=== PATIENT | male | born 1955 | race Caucasian/White ===

== ENCOUNTER 2018-01-08 06:07 | Day surgery (SDC) | payer BC ==
[2018-01-08] MEDS ORDERED: NITROGLYCERIN SL TABS 0.4 MG TAB SUBLINGUAL STA (06:18)
[2018-01-08] MEDS ORDERED: SODIUM CHLORIDE 0.9% 1,000 ML IV STA (06:18)
[2018-01-08] MEDS ORDERED: GLUCAGON 1 MG/ML VIAL IVP STA (06:19)
--- NOTE | 2018-01-08 06:19 | ED ---
General Adult HPI <Cheko Farah Georgina - Last Filed: 01/08/18 10:40> - General Source: patient Mode of arrival: ambulatory Limitations: no limitations <Michelle Michel - Last Filed: 01/12/18 20:51> - General Chief complaint: ENT Stated complaint: Cannot Swallow Time Seen by Provider: 01/08/18 06:17 - History of Present Illness Initial comments: [id number]old male presents to the ED with a sensation that the pork chop for dinner still stuck in his throat. Patient reports that he was in his usual state of health throughout the day yesterday, he reports he had a protein shake for lunch and around 9 PM was eating his dinner in bed. He reports he took a big bite of a pork chop and felt as though it got stuck in his lower throat. Patient reports that it has felt as though it is in his throat since that time. He does report that he was able to cough up some of it but continues to feel as though there is a large piece of meat stuck. He reports that he has been awake all night because he is unable to lay flat and unable to tolerate his oral secretions. He's states that he has been spitting is his saliva into a bucket because he feels as though it pools in his throat and he can swallow it. He has no history of any similar events like this. He has had a colonoscopy in the past for routine screening but never had an EGD. He does report the distant past he was diagnosed with acid reflux and was on Nexium for a period of time but is no longer on that. At times he does have a sensation of acid or taste of acid in his throat when he lays down. However he wasn't experiencing that today. (Michelle Michel) - Related Data Home Medications Medication Instructions Recorded Confirmed Atorvastatin [Lipitor] 40 mg PO HS 03/03/16 03/03/16 Cholecalciferol [Vitamin D3] 1,000 unit PO DAILY 03/03/16 03/03/16 Escitalopram [Lexapro] 10 mg PO HS 03/03/16 03/03/16 Glucosamine/Chondr Quigley A Sod [Osteo 1 each PO DAILY 03/03/16 03/03/16 Bi-Flex Caplet] Hydrochlorothiazide [Hydrodiuril] 12.5 mg PO DAILY 03/03/16 03/03/16 Ibuprofen [Motrin] 800 mg PO DAILY 03/03/16 03/03/16 Losartan Potassium 100 mg PO DAILY 03/03/16 03/03/16 amLODIPine [Norvasc] 10 mg PO DAILY 03/03/16 03/03/16 hydrALAZINE HCL [Apresoline] 25 mg PO TID 03/03/16 03/03/16 Allergies Allergy/AdvReac Type Severity Reaction Status Date / Time No Known Allergies Allergy Verified 01/08/18 06:15 Review of Systems ROS Other: All systems not noted in ROS Statement are negative. <Cheko Farah B - Last Filed: 01/08/18 10:40> ROS Other: All systems not noted in ROS Statement are negative. <Michelle Michel P - Last Filed: 01/12/18 20:51> ROS Statement: Those systems with pertinent positive or pertinent negative responses have been documented in the HPI. Past Medical History Past Medical History: Deep Vein Thrombosis (DVT), Hyperlipidemia, Hypertension History of Any Multi-Drug Resistant Organisms: None Reported Past Surgical History: Orthopedic Surgery, Tonsillectomy Additional Past Surgical History / Comment(s): jessica knee scope, ankle sx, sinus sx, removal of valentino's neuroma Past Anesthesia/Blood Transfusion Reactions: No Reported Reaction Past Psychological History: No Psychological Hx Reported Smoking Status: Never smoker Past Alcohol Use History: Daily Past Drug Use History: Marijuana - Past Family History Father Family Medical History: Cancer Additional Family Medical History / Comment(s): prostate Sister(s) Family Medical History: Cancer Additional Family Medical History / Comment(s): lung, reproductive <Michelle Michel P - Last Filed: 01/12/18 20:51> General Exam Limitations: no limitations General appearance: alert, other ([place] comfortable) Head exam: Present: atraumatic, normocephalic Eye exam: Present: normal appearance, PERRL ENT exam: Present: mucous membranes moist Neck exam: Present: normal inspection Respiratory exam: Absent: respiratory distress Cardiovascular Exam: Present: regular rate, normal rhythm GI/Abdominal exam: Present: soft. Absent: distended Rectal exam: Present: deferred Extremities exam: Present: normal inspection Neurological exam: Present: alert, oriented X3 Psychiatric exam: Present: normal affect, normal mood Skin exam: Present: warm, dry <Michelle Michel - Last Filed: 01/12/18 20:51> Course <Cheko Farah - Last Filed: 01/08/18 10:40> <Michelle Michel - Last Filed: 01/12/18 20:51> Vital Signs 01/08/18 01/08/18 01/08/18 06:11 06:51 09:42 Temperature 98.2 F 98.2 F Pulse Rate 78 73 63 Respiratory 18 18 18 Rate Blood Pressure 153/95 151/86 146/86 O2 Sat by Pulse 96 94 L 94 L Oximetry - Reevaluation(s) Reevaluation #1: Patient received nitroglycerin glucagon with absolutely no improvement in his symptoms still not able to tolerate oral secretions GI was paged 01/08/18 07:21 (Michelle Michel) Medical Decision Making - Lab Data Result diagrams: 01/08/18 06:50 01/08/18 06:50 <Cheko Farah - Last Filed: 01/08/18 10:40> - Lab Data Result diagrams: 01/08/18 06:50 01/08/18 06:50 <Michelle Michel - Last Filed: 01/12/18 20:51> - Medical Decision Making Patient seen and evaluated, history and physical exam are concerning for a food bolus Nitroglycerin none were ordered for treatment Chest x-ray and cardiac labs were ordered to rule out ACS mimic as a cause of chest pressure No response to medications, persistently spitting out his oral secretions Gi paged Patient care discussed with Dr. Lin, who recommends continued supportive care, IV fluid rehydration and he will plan for EGD. Dr. Farah will follow up on patient disposition (Michelle Michel) - Lab Data Lab Results 01/08/18 01/08/18 01/08/18 Range/Units 06:50 06:50 06:50 WBC 6.4 (3.8-10.6) k/uL RBC 4.85 (4.30-5.90) m/uL Hgb 14.2 (13.0-17.5) gm/dL Hct 42.3 (39.0-53.0) % MCV 87.2 (80.0-100.0) fL MCH 29.2 (25.0-35.0) pg MCHC 33.5 (31.0-37.0) g/dL RDW 13.3 (11.5-15.5) % Plt Count 296 (150-450) k/uL Neutrophils % 66 % Lymphocytes % 22 % Monocytes % 5 % Eosinophils % 4 % Basophils % 1 % Neutrophils # 4.2 (1.3-7.7) k/uL Lymphocytes # 1.4 (1.0-4.8) k/uL Monocytes # 0.4 (0-1.0) k/uL Eosinophils # 0.3 (0-0.7) k/uL Basophils # 0.0 (0-0.2) k/uL PT 10.0 (9.0-12.0) sec INR 1.0 (<1.2) APTT 23.8 (22.0-30.0) sec Sodium 142 (137-145) mmol/L Potassium 4.5 (3.5-5.1) mmol/L Chloride 107 (98-107) mmol/L Carbon Dioxide 27 (22-30) mmol/L Anion Gap 8 mmol/L BUN 13 (9-20) mg/dL Creatinine 0.84 (0.66-1.25) mg/dL Est GFR (CKD-EPI)AfAm >90 (>60 ml/min/1.73 sqM) Est GFR (CKD-EPI)NonAf >90 (>60 ml/min/1.73 sqM) Glucose 96 (74-99) mg/dL Calcium 9.5 (8.4-10.2) mg/dL Magnesium 2.3 (1.6-2.3) mg/dL Total Bilirubin 0.6 (0.2-1.3) mg/dL AST 41 (17-59) U/L ALT 57 (21-72) U/L Alkaline Phosphatase 66 (38-126) U/L Troponin I (0.000-0.034) ng/mL Total Protein 7.8 (6.3-8.2) g/dL Albumin 4.6 (3.5-5.0) g/dL 01/08/18 Range/Units 06:50 WBC (3.8-10.6) k/uL RBC (4.30-5.90) m/uL Hgb (13.0-17.5) gm/dL Hct (39.0-53.0) % MCV (80.0-100.0) fL MCH (25.0-35.0) pg MCHC (31.0-37.0) g/dL RDW (11.5-15.5) % Plt Count (150-450) k/uL Neutrophils % % Lymphocytes % % Monocytes % % Eosinophils % % Basophils % % Neutrophils # (1.3-7.7) k/uL Lymphocytes # (1.0-4.8) k/uL Monocytes # (0-1.0) k/uL Eosinophils # (0-0.7) k/uL Basophils # (0-0.2) k/uL PT (9.0-12.0) sec INR (<1.2) APTT (22.0-30.0) sec Sodium (137-145) mmol/L Potassium (3.5-5.1) mmol/L Chloride (98-107) mmol/L Carbon Dioxide (22-30) mmol/L Anion Gap mmol/L BUN (9-20) mg/dL Creatinine (0.66-1.25) mg/dL Est GFR (CKD-EPI)AfAm (>60 ml/min/1.73 sqM) Est GFR (CKD-EPI)NonAf (>60 ml/min/1.73 sqM) Glucose (74-99) mg/dL Calcium (8.4-10.2) mg/dL Magnesium (1.6-2.3) mg/dL Total Bilirubin (0.2-1.3) mg/dL AST (17-59) U/L ALT (21-72) U/L Alkaline Phosphatase (38-126) U/L Troponin I <0.012 (0.000-0.034) ng/mL Total Protein (6.3-8.2) g/dL Albumin (3.5-5.0) g/dL Disposition Is patient prescribed a controlled substance at d/c from ED?: No <Cheko Farah B - Last Filed: 01/08/18 10:40> <Michelle Michel P - Last Filed: 01/12/18 20:51> Disposition: HOME SELF-CARE Condition: Good
[2018-01-08 07:03] LABS: Basophils % (A) 1 %; Eosinophils # (A) 0.3 k/uL (0-0.7); Eosinophils % (A) 4 %; HCT 42.3 % (39.0-53.0); HGB 14.2 gm/dL (13.0-17.5); Lymphocytes # (A) 1.4 k/uL (1.0-4.8); Lymphocytes % (A) 22 %; MCH 29.2 pg (25.0-35.0); MCHC 33.5 g/dL (31.0-37.0); MCV 87.2 fL (80.0-100.0); Mean Platelet Volume 6.4; Monocytes # (A) 0.4 k/uL (0-1.0); Monocytes % (A) 5 %; Neutrophils # (A) 4.2 k/uL (1.3-7.7); Neutrophils % (A) 66 %; Platelet Count 296 k/uL (150-450); RBC 4.85 m/uL (4.30-5.90); RDW 13.3 % (11.5-15.5); WBC 6.4 k/uL (3.8-10.6)
[2018-01-08 07:12] LABS: Partial Thromboplastin Time 23.8 sec (22.0-30.0)
[2018-01-08 07:13] LABS: ALT 57 U/L (21-72); AST 41 U/L (17-59); Albumin 4.6 g/dL (3.5-5.0); Alkaline Phosphatase 66 U/L (38-126); Anion Gap 8 mmol/L; Blood Urea Nitrogen 13 mg/dL (9-20); Calcium 9.5 mg/dL (8.4-10.2); Carbon Dioxide 27 mmol/L (22-30); Chloride 107 mmol/L (98-107); Glucose 96 mg/dL (74-99); Magnesium 2.3 mg/dL (1.6-2.3); Potassium 4.5 mmol/L (3.5-5.1); Sodium 142 mmol/L (137-145); Total Bilirubin 0.6 mg/dL (0.2-1.3); Total Protein 7.8 g/dL (6.3-8.2)
--- NOTE | 2018-01-08 07:21 | XR ---
EXAMINATION TYPE: XR chest 2V DATE OF EXAM: 01/08/2018 COMPARISON: NONE HISTORY: Dysphasia. Concern for foreign body. TECHNIQUE: Frontal and lateral views of the chest are obtained. FINDINGS: There is no focal air space opacity, pleural effusion, or pneumothorax seen. The cardiac silhouette size is within normal limits. The osseous structures are intact. IMPRESSION: No acute cardiopulmonary process. No radiopaque foreign body identified.
[2018-01-08] MEDS ORDERED: PANTOPRAZOLE 40 MG/10 ML VIAL IVP SCH (09:15)
--- NOTE | 2018-01-08 09:45 | P.CONS ---
<GerardoMariannannetta Vasquez - Last Filed: 01/08/18 09:36> History of Present Illness - Reason for Consult Consult date: 01/08/18 Dysphagia Requesting physician: Marco Baker - History of Present Illness 62-year-old gentleman with a history of long-standing GERD, chronic upper esophageal dysphagia greater than 10 years presents with acute dysphagia. Patient ate 2 bites of pork chop last night around 9 PM and immediately felt a sensation of dysphagia food "stuck" in the upper esophageal region. Denies shortness of breath or chest pain however he is unable to swallow any liquids. He has a long-standing history of dysphagia with raw vegetables and meats but has never had it formally evaluated. No history of EGD. Last Thursday he had an episode of dysphagia after eating a few pieces of chicken but shortly resolved with fluids. Denies hematemesis hematochezia or melena. No weight loss. No fever. He was on PPI therapy previously but presently not. He takes a baby aspirin and one tablet of Motrin 800 mg daily for musculoskeletal discomfort; last dose yesterday. Chest x-ray reported no evidence of foreign body. CBC BMP PT/INR within normal limits. Review of Systems Constitutional: Denies fever, chills, sweats, weight gain, or loss. HEENT: Negative for migraines, blurred vision or loss, earaches, drainage, tinnitus, oral mucosal lesions, dysphagia, or odynophagia. Cardiac: Negative for chest pain, arrhythmias, or palpitation. Respiratory: Negative for shortness of breath, hemoptysis, cough, or sputum production. Gastrointestinal: See HPI for pertinent findings. Genitourinary: Negative for hematuria, urgency, frequency, polyuria, dysuria, or penile discharge. Musculoskeletal: Negative for muscle aches, swelling, arthritis, and arthralgias. Neurologic: Negative for stroke or TIA. Endocrine: Negative for thyroid problems. Skin: Negative for rash or itching. Psychiatric: Negative history for depression and anxiety Past Medical History Past Medical History: Deep Vein Thrombosis (DVT), Hyperlipidemia, Hypertension History of Any Multi-Drug Resistant Organisms: None Reported Past Surgical History: Orthopedic Surgery, Tonsillectomy Additional Past Surgical History / Comment(s): jessica knee scope, ankle sx, sinus sx, removal of valentino's neuroma Past Anesthesia/Blood Transfusion Reactions: No Reported Reaction Past Psychological History: No Psychological Hx Reported Smoking Status: Never smoker Past Alcohol Use History: Daily Past Drug Use History: Marijuana - Past Family History Father Family Medical History: Cancer Additional Family Medical History / Comment(s): prostate Sister(s) Family Medical History: Cancer Additional Family Medical History / Comment(s): lung, reproductive Medications and Allergies Home Medications Medication Instructions Recorded Confirmed Type Atorvastatin [Lipitor] 40 mg PO HS 03/03/16 03/03/16 History Cholecalciferol [Vitamin D3] 1,000 unit PO DAILY 03/03/16 03/03/16 History Escitalopram [Lexapro] 10 mg PO HS 03/03/16 03/03/16 History Glucosamine/Chondr Quigley A Sod [Osteo 1 each PO DAILY 03/03/16 03/03/16 History Bi-Flex Caplet] Hydrochlorothiazide [Hydrodiuril] 12.5 mg PO DAILY 03/03/16 03/03/16 History Ibuprofen [Motrin] 800 mg PO DAILY 03/03/16 03/03/16 History Losartan Potassium 100 mg PO DAILY 03/03/16 03/03/16 History amLODIPine [Norvasc] 10 mg PO DAILY 03/03/16 03/03/16 History hydrALAZINE HCL [Apresoline] 25 mg PO TID 03/03/16 03/03/16 History Allergies Allergy/AdvReac Type Severity Reaction Status Date / Time No Known Allergies Allergy Verified 01/08/18 06:15 Physical Exam Vitals: Vital Signs Temp Pulse Resp BP Pulse Ox 01/08/18 06:51 98.2 F 73 18 151/86 94 L 01/08/18 06:11 98.2 F 78 18 153/95 96 Intake and Output 01/07/18 01/08/18 01/08/18 22:59 06:59 14:59 Other: Weight 102.058 kg General appearance: The patient is alert, oriented, in no acute distress. Holding an emesis basin spitting up clear saliva. HET: Head is normocephalic and atraumatic. Pupils are equal and reactive. Oropharynx is clear without lesions. Neck: Supple without lymphadenopathy. Trachea midline. Heart: S1 S2. Regular rate and rhythm. Lungs: No crackles or wheezes are heard. Abdomen: Soft, nontender, nondistended with bowel sounds. No peritoneal signs. No palpable organomegaly or masses. Extremities: Normal skin color and turgor. No cyanosis, rash, ulceration, clubbing, or edema. Radial and pedal pulses are 2/4 bilaterally. Neurological: No focal deficits. Strength and sensation are grossly intact. Results CBC & Chem 7: 01/08/18 06:50 01/08/18 06:50 Chest x-ray: report reviewed (Dr. Matthews) Assessment and Plan (1) Dysphagia Narrative/Plan: 62-year-old gentleman with a reported history of long-standing GERD and intermittent chronic dysphagia no history of endoscopic evaluation presents with acute dysphagia after eating 2 bites of a pork chop last night suggestive of acute food dysphagia however possible underlying esophageal stricture disease possible Zenker's diverticulum cannot be excluded. Status: Acute Code(s): R13.10 - DYSPHAGIA, UNSPECIFIED SNOMED Code(s): 10443083 (2) GERD (gastroesophageal reflux disease) Status: Acute Code(s): K21.9 - GASTRO-ESOPHAGEAL REFLUX DISEASE WITHOUT ESOPHAGITIS SNOMED Code(s): 616598050 Plan: 1. Nothing by mouth. 2. EGD evaluation. 3. Protonix 40 mg IV daily first dose ow. The resolution manager has discussed the risks, benefits and alternative therapies for the above-mentioned procedure and for both sedation/analgesia as well as necessary blood product administration, if indicated, as they pertain to this patient. The patient has indicated understanding and acceptance of the risks and procedures discussed. Thank you for this kind referral and the opportunity to participate in the care of your patient. This consultation was discussed with Dr. Matthews. The impression and plan of care have been directed as dictated. <Jose Matthews - Last Filed: 01/15/18 10:19> Results CBC & Chem 7: 01/08/18 06:50 01/08/18 06:50 Assessment and Plan Plan: The patient has been seen and evaluated, and the plan of care discussed. I agree with the above recommendations and assessment and plan.
[2018-01-08 11:28] VITALS: TEMP 98.1
[2018-01-08] MEDS ORDERED: LACTATED RINGERS 1,000 ML IV ONE (11:35)
[2018-01-08] MEDS ORDERED: LIDOCAINE 1% INJ 10MG/ML (20 ML MDV) ONE (11:41)
[2018-01-08] MEDS ORDERED: PROPOFOL 10 MG/ML 20 ML VIAL IV ONE (11:41)
[2018-01-08] MEDS ORDERED: KETAMINE 10 MG/ML 20 ML VIAL ONE (11:41)
[2018-01-08] MEDS ORDERED: MIDAZOLAM 2 MG/2 ML VIAL ONE (11:41)
[2018-01-08] MEDS ORDERED: fentaNYL (PF) 50 MCG/ML 2 ML AMP ONE (11:41)
[2018-01-08 12:28] VITALS: RESP 18
[2018-01-08 12:43] VITALS: BP 126/70; PULSE 54
--- NOTE | 2018-01-08 16:23 | P.PCN ---
Date of Procedure: 01/08/18 Description of Procedure: BRIEF HISTORY: Patient is a 62-year-old, pleasant, with a known history of gastroesophageal reflux disease not on any current therapy and multiple episodes of dysphagia in the past without follow-up or requiring hospitalization. He presents to the hospital with complaints of food impaction and unable to tolerate his own secretions. The patient reports that this is happening in the past but at those times he was able to either cough the food up or get it down with water but this time he is been unable to do that. He is a long history of GERD as stated and was previously on PPI therapy but is currently not taking any antacid medications. He is also on daily Motrin for arthritis. PROCEDURE PERFORMED: Esophagogastroduodenoscopy. PREOPERATIVE DIAGNOSIS: Food impaction, dysphagia, gastroesophageal reflux disease. IV sedation per anesthesia. PROCEDURE: After informed consent was obtained, the patient was brought into the endoscopy unit. IV sedation was administered by Anesthesia under continuous monitoring. Initially the Olympus GIF-160 video endoscope was inserted into the mouth. Esophagus intubated without any difficulty. It was gradually advanced into the stomach and duodenum and carefully examined with no evidence of the food that the patient had described. It is likely that the impaction had already passed prior to EGD. The bulb and the second part of the duodenum which appeared mildly inflamed suggestive of duodenitis. The scope at this time was withdrawn to the stomach, adequately insufflated with air, and upon careful examination, mucosa of the antrum showed inflammatory changes suggestive of gastritis and multiple superficial ulcerations likely secondary to the patient' s NSAID use. The body of the stomach also showed erythema suggestive of gastritis. Biopsies were taken of both the ulcerated areas as well as the areas of gastritis. The cardia and the fundus appeared normal. The scope was then withdrawn into the esophagus. A small hiatal hernia was noted. The the Z line appeared irregular, with evidence of erythema and was likely the point of food impaction. This was biopsied.. The esophagus otherwise appeared normal, however given the patient's long-standing history of dysphagia and symptoms of food impaction biopsies of the midesophagus were taken to rule out eosinophilic esophagitis. IMPRESSION: 1. Multiple superficial antral ulcers likely secondary to the patient's use of NSAIDs, biopsied. 2. Gastritis, biopsied. 3. Irregular GE junction with erythema and edema noted at the Z line likely secondary to the patient's food impaction. This was biopsied. 4. Small hiatal hernia. 5. Mid esophagus biopsies to rule out EOE. RECOMMENDATIONS: The findings of this examination were discussed with the patient and his . A prescription for Protonix 40 mg twice a day was given to the patient. The patient was instructed to follow-up in 2 weeks and to have a repeat endoscopy in 6-8 weeks for evaluation of ulcer healing and reevaluation of esophagus. The patient was also instructed to avoid NSAID use. He was told to stay on a soft diet today and to advance diet as tolerated tomorrow.
== END 2018-01-08 13:12 | disposition home or self-care (01) ==
LOC: EC 06:07 → ORWHC2ENDO 06:07 → EC 11:18 → EDSTATUS 12:24 → ORWHC2ENDO 13:12
PROVIDERS: ATTEND Emergency Medicine
DX: T18.128A Food in esophagus causing other injury, initial encounter (principal); K29.50 Unspecified chronic gastritis without bleeding; K29.80 Duodenitis without bleeding; I10 Essential (primary) hypertension; E78.5 Hyperlipidemia, unspecified; K25.9 Gastric ulcer, unspecified as acute or chronic, without hemorrhage or perforation; K44.9 Diaphragmatic hernia without obstruction or gangrene; F39 Unspecified mood [affective] disorder; K21.0 Gastro-esophageal reflux disease with esophagitis; Z79.82 Long term (current) use of aspirin; Z79.1 Long term (current) use of non-steroidal anti-inflammatories (NSAID); Z86.718 Personal history of other venous thrombosis and embolism; Z79.899 Other long term (current) drug therapy; R07.89 Other chest pain
CPT/HCPCS: 99284; 36415; 93005; 88305; 80053; 83735; 84484; 85025; 85610; 85730; 71046; 43239; J2250; J1610; J2001; J3010; J2704; C9113

== ENCOUNTER 2018-03-31 09:13 | Day surgery (SDC) | payer BC ==
[2018-03-29 12:04] VITALS: BMI 30.5
[2018-03-31 09:41] VITALS: RESP 16; TEMP 98.3
[2018-03-31] MEDS ORDERED: LIDOCAINE 1% 20 ML VIAL (10MG/ML) FOR IV START INTRADERMA ONE (09:43)
[2018-03-31] MEDS ORDERED: LACTATED RINGERS 1,000 ML IV ONE (09:50)
[2018-03-31] MEDS ORDERED: LIDOCAINE 1% INJ 10MG/ML (20 ML MDV) ONE (10:06)
[2018-03-31] MEDS ORDERED: PROPOFOL 10 MG/ML 20 ML VIAL IV ONE (10:06)
--- NOTE | 2018-03-31 11:07 | P.PCN ---
Date of Procedure: 03/31/18 Procedure(s) Performed: Brief history: Patient is a pleasant 63-year-old white male, scheduled for an elective upper endoscopy as well as colonoscopy as a part of evaluation of intermittent dysphagia to solids of several years duration. He recently had an episode of acute food impaction. She went to the emergency room and had an upper endoscopy by Dr. Jacob and was noted to have distal esophagitis with no obvious stricture. Food impaction was already resolved but at time of upper endoscopy. Biopsies from the esophagus showed his reflux esophagitis. He was subsequent discharged on Prilosec 20 mg daily and is feeling much better. He scheduled for an upper endoscopy with possible dilation today. He also has prior history of colon polyps and hence ischial for colonoscopy today. Procedure performed: Esophagogastroduodenoscopy with biopsy and dilation Colonoscopy Preoperative diagnosis: Intermittent dysphagia to solids and recent episode of acute food impaction 1 month ago History of colon polyps Anesthesia: MAC Procedure: After informed consent was obtained from the patient was brought into the endoscopy unit and IV sedation was administered by anesthesia under continuous monitoring. Initially upper endoscopy was done. The Olympus GF 160 video endoscope was inserted inserted into the mouth and esophagus intubated without any difficulty and was gradually advanced into the stomach and duodenum and carefully examined. The bulb and second part of the duodenum appeared normal. The scope was then withdrawn into the stomach adequately insufflated with air and upon careful examination the antrum and body, cardia and fundus appeared normal. Previously noted gastric ulcerations with old healed. The scope was then withdrawn into the esophagus. The GE junction was located at 40 cm to the incisors. There is a distal esophageal Schatzki's ring, that was dilated using 18 and 19 mm TTS balloon for total of 90 seconds. The GE junction appeared regular with no erythema erosions or ulcerations. Biopsies were done from the midesophagus. Rest of the esophagus appeared normal. Patient tolerated the procedure well. At this time the patient continued to remain sedation. Initial digital rectal examination was normal. Olympus CF 160 video colonoscope was then inserted into the rectum and gradually advanced to the cecum without any difficulty. Careful examination was performed as the scope was gradually being withdrawn. The prep was excellent. The cecum, ascending colon, transverse colon, descending colon, sigmoid colon and rectum appeared normal. Scattered sigmoid diverticulosis seen. Retroflexion was performed in the rectum and no lesions were noted. Patient tolerated the procedure well. Impression: 1. Upper endoscopy revealed distal esophageal Schatzki's ring status post balloon dilation using 18 and 19 mm TTS balloon and a small hiatal hernia. 2. Colonoscopy revealed scattered sigmoid diverticulosis but no rales of colorectal neoplasia. Recommendations: Findings of this examination were discussed with the patient as well as his family. He was advised to follow with the biopsy results. He'll remain on a clear liquid diet today. He was advised to continue with Prilosec 20 mg daily and follow antireflux measures. He'll be seen in the office in 6 weeks.
[2018-03-31 11:23] VITALS: BP 131/80; PULSE 57
== END 2018-03-31 11:46 | disposition home or self-care (01) ==
LOC: ORWHC2ENDO 09:13
PROVIDERS: ATTEND Internal Medicine Gastroenterology
DX: Z12.11 Encounter for screening for malignant neoplasm of colon (principal); K22.2 Esophageal obstruction; K57.30 Diverticulosis of large intestine without perforation or abscess without bleeding; K44.9 Diaphragmatic hernia without obstruction or gangrene; Z86.010 Personal history of colon polyps; I10 Essential (primary) hypertension; E78.5 Hyperlipidemia, unspecified; F32.9 Major depressive disorder, single episode, unspecified; K21.9 Gastro-esophageal reflux disease without esophagitis; Z79.82 Long term (current) use of aspirin; Z79.899 Other long term (current) drug therapy
CPT/HCPCS: 88305; 43239; 43249; J2001; J2704; C1726; G0105; 45378